=== PATIENT | female | born 1955 | race Caucasian/White ===

== ENCOUNTER 2017-09-11 09:39 | Emergency (ER) | payer BC ==
[2017-09-11 09:52] VITALS: BP 185/70
[2017-09-11] MEDS ORDERED: Meclizine 12.5 MG Tab PO ONE (10:14)
--- NOTE | 2017-09-11 10:58 | CT ---
Head CT Technique: Multiple axial sections through the brain were obtained. Intravenous contrast was not utilized. Comparison: No previous intracranial imaging. Findings: Ventricles along with basal cisterns and sulci over the convexities are within normal limits for the patient's age. No abnormal parenchymal densities are seen. No evidence of intracranial hemorrhage. No midline shift or mass effect is seen. Bone window settings were reviewed which shows no discrete calvarial abnormality. Visualized sinuses are clear. Mild atherosclerotic change is seen within the carotid siphon. Impression: 1. Incidental findings. Nothing acute is appreciated on noncontrast head CT study. Diagnostic code #2
--- NOTE | 2017-09-11 11:12 | EDM.PDOC ---
ED HPI GENERAL MEDICAL PROBLEM - General Chief Complaint: Neurological Problem Stated Complaint: DIZZY AND OFF BALANCE Time Seen by Provider: 09/11/17 09:55 Source of Information: Reports: Patient, RN Notes Reviewed - History of Present Illness INITIAL COMMENTS - FREE TEXT/NARRATIVE: 62-year-old female comes in with vertigo type dizziness. She had mild vertigo type dizziness yesterday morning that was worse with motion. that did get better and did fairly well go away during the day. She then had recurrence of more severe dizziness upon awakening this morning. Worse with motion. Is okay if she lies still and does not move her head. She states when she is up standing or walking she feels very "unsteady" on her feet. No focal weakness. No headache or ear discomfort. She's not been ill with recent sinus problems. She's never had anything of this nature before. She is insulin-dependent diabetic. - Related Data Allergies Allergy/AdvReac Type Severity Reaction Status Date / Time fish oil Allergy Stomach Verified 12/22/15 06:16 Upset Home Meds: Home Meds Hydrocodone/Acetaminophen [[place]ion 10-325 Tablet] 1 each PO Q4H PRN #20 tablet [Rx] Ibuprofen [Motrin] 400 mg PO Q6H PRN #28 tablet 12/22/15 [Rx] Insulin Glarg,Human.Rec.Analog [Lantus] 38 units SQ DAILY 12/22/15 [History] Metoprolol Tartrate [Lopressor] 12/22/15 [History] Pravastatin [Pravachol] 12/22/15 [History] SitaGLIPtin [Januvia] 12/22/15 [History] Tamsulosin [Flomax] 0.4 mg PO ONETIME #10 cap.er 12/22/15 [Rx] glipiZIDE [Glipizide ER] 12/22/15 [History] metFORMIN [Glucophage XR] 2 tab PO BID 12/22/15 [History] Insulin Aspart [NovoLOG] 7 unit SQ BID 09/11/17 [History] Past Medical History Cardiovascular History: Reports: High Cholesterol, Hypertension Genitourinary History: Reports: Renal Calculus Endocrine/Metabolic History: Reports: Diabetes, Type I - Past Surgical History HEENT Surgical History: Reports: Cataract Surgery Social & Family History - Family History Family Medical History: Noncontributory - Tobacco Use Smoking Status *Q: Never Smoker - Recreational Drug Use Recreational Drug Use: No ED ROS GENERAL - Review of Systems Review Of Systems: See Below Constitutional: Denies: Fever, Chills, Diaphoresis HEENT: Reports: Vertigo. Denies: Ear Discharge, Ear Pain, Rhinitis, Sinus Problem, Throat Pain, Vision Change Respiratory: Denies: Shortness of Breath Cardiovascular: Denies: Chest Pain GI/Abdominal: Reports: Nausea. Denies: Abdominal Pain, Vomiting Musculoskeletal: Reports: No Symptoms Skin: Reports: No Symptoms Neurological: Reports: Dizziness. Denies: Headache, Numbness, Tingling, Trouble Speaking, Weakness ED EXAM, DIZZINESS - Physical Exam Exam: See Below Exam Limited By: No Limitations General Appearance: Alert, No Apparent Distress Eye Exam: Bilateral Eye: Nystagmus (slight horizontal nystagmus with motion), PERRL Ears: Normal External Exam, Normal Canal, Normal TMs Nose: Normal Inspection Throat/Mouth: Normal Inspection, Normal Oropharynx Head Exam: Atraumatic. No: Facial Swelling Vertigo: reproducible Respiratory/Chest: No Respiratory Distress, Lungs Clear, Normal Breath Sounds Cardiovascular: Regular Rate, Rhythm GI/Abdominal: Soft, Non-Tender. No: Guarding Neurological: Alert, No Motor/Sensory Deficits, Oriented x 3 Extremities: Normal Inspection. No: Pedal Edema, Leg Pain Psychiatric: Normal Mood Skin Exam: Warm, Dry, Normal Color Course - Vital Signs Last Recorded V/S: Last Vital Signs Temp 97.8 F 09/11/17 09:49 Pulse 78 09/11/17 09:49 Resp 16 09/11/17 09:49 BP 185/70 H 09/11/17 09:49 Pulse Ox 95 09/11/17 09:49 - Orders/Labs/Meds Labs: Laboratory Tests 09/11/17 09/11/17 Range/Units 10:25 10:25 WBC 5.94 (3.98-10.04) K/mm3 RBC 3.72 L (3.98-5.22) M/mm3 Hgb 11.2 (11.2-15.7) gm/L Hct 33.8 L (34.1-44.9) % MCV 90.9 (79.4-94.8) fl MCH 30.1 (25.6-32.2) pg MCHC 33.1 (32.2-35.5) g/dl RDW Std Deviation 41.7 (36.4-46.3) fL Plt Count 237 (182-369) K/mm3 MPV 10.1 (9.4-12.3) fl Neut % (Auto) 59.0 (34.0-71.1) % Lymph % (Auto) 29.3 (19.3-51.7) % Hickman % (Auto) 9.1 (4.7-12.5) % Eos % (Auto) 2.2 (0.7-5.8) Baso % (Auto) 0.2 (0.1-1.2) % Neut # (Auto) 3.51 (1.56-6.13) K/mm3 Lymph # (Auto) 1.74 (1.18-3.74) K/mm3 Hickman # (Auto) 0.54 H (0.24-0.36) K/mm3 Eos # (Auto) 0.13 (0.04-0.36) K/mm3 Baso # (Auto) 0.01 (0.01-0.08) K/mm3 Sodium 141 (136-145) mEq/L Potassium 3.8 (3.5-5.1) mEq/L Chloride 104 (98-107) mEq/L Carbon Dioxide 24 (21-32) mEq/L Anion Gap 16.8 H (5-15) BUN 23 H (7-18) mg/dL Creatinine 1.5 H (0.55-1.02) mg/dL Est Cr Clr Drug Dosing 31.15 mL/min Estimated GFR (MDRD) 35 (>60) mL/min BUN/Creatinine Ratio 15.3 (14-18) Glucose 275 H (80-115) mg/dL Calcium 9.2 (8.5-10.1) mg/dL Total Bilirubin 0.7 (0.2-1.0) mg/dL AST 14 L (15-37) U/L ALT 26 (14-59) U/L Alkaline Phosphatase 66 (46-116) U/L Total Protein 7.2 (6.4-8.2) g/dl Albumin 3.3 L (3.4-5.0) g/dl Globulin 3.9 gm/dL Albumin/Globulin Ratio 0.9 L (1-2) Meds: Medications Discontinued Medications Generic Name Dose Route Start Last Admin Trade Name Colt PRN Reason Stop Dose Admin Meclizine HCl 12.5 mg 09/11/17 10:14 09/11/17 10:27 Antivert PO 09/11/17 10:15 12.5 mg ONETIME ONE Administration - Re-Assessments/Exams Free Text/Narrative Re-Assessment/Exam: 09/11/17 11:34 Feeling better, she was able to get up to the bathroom a short time ago. Head CT normal. She still is feeling some vertigo with walking but much improved from arrival. She is diabetic so I'm not going to start her on any type of steroid medication. SHe does feel up to going home at this time. Discharge instructions as documented Departure - Departure Time of Disposition: 11:35 Disposition: Home, Self-Care 01 Condition: Fair Clinical Impression: Labyrinthitis Qualifiers: Laterality: unspecified laterality Qualified Code(s): H83.09 - Labyrinthitis, unspecified ear - Discharge Information Referrals: Aditya Gonzalez MD [Primary Care Provider] - Forms: ED Department Discharge Additional Instructions: Rest, move slowly and carefully as discussed, Antivert 12.5 mg (available OTC) once this afternoon, and then again at bedtime today. than take that twice daily for the next 2 or 3 days until symptoms have completely resolved. Follow- up clinic if not getting back to normal by early next week as expected, return to ED if symptoms worsening in any way.
== END 2017-09-11 11:47 | disposition home or self-care (01) ==
LOC: JD.ED 09:39
DX: H83.09 Labyrinthitis, unspecified ear (principal); I10 Essential (primary) hypertension; E78.00 Pure hypercholesterolemia, unspecified; E10.9 Type 1 diabetes mellitus without complications; Z98.49 Cataract extraction status, unspecified eye; Z87.442 Personal history of urinary calculi; Z79.4 Long term (current) use of insulin; Z91.013 Allergy to seafood
CPT/HCPCS: 36415; 70450; 80053; 85025; 99284; A9270

== ENCOUNTER 2018-03-21 14:42 | Emergency (ER) | payer BC ==
[2018-03-21 14:51] VITALS: BP 193/73
--- NOTE | 2018-03-21 14:55 | EDM.PDOC ---
ED HPI GENERAL MEDICAL PROBLEM - General Chief Complaint: Abdominal Pain Stated Complaint: PAIN RIGHT SIDE Time Seen by Provider: 03/21/18 14:55 Source of Information: Reports: Patient History Limitations: Reports: No Limitations - History of Present Illness INITIAL COMMENTS - FREE TEXT/NARRATIVE: 63-year-old female presents to the ED with diffuse right rupesh-abdominal pain rating through to her back. She states it started yesterday afternoon but then seemed to ease up and she was able to sleep fairly well. About 3 hours ago the pain increased tremendously in intensity and she made decision that she would need to come to the hospital. She has not noticed any blood in her urine or darker color in her urine. She has had kidney stone on the right side and at least 3 previous occasions. All of them passed on their own without lithotripsy. Renal colic was about 2 years ago. She's had no previous abdominal surgeries. She is an insulin-dependent diabetic and her sugars are running a bit higher today. Denies any genitourinary complaints such as dysuria urgency or frequency. She is nauseated intermittently when the pain is intense. At present her pain is pretty well gone. When the pain is present it has a very strong colicky component. Onset: Gradual Onset Date: 03/20/18 (First noted yesterday afternoon.) Onset Time: 14:00 Duration: Hour(s): Location: Reports: Abdomen (Right midabdomen rating to to her back), Back ( Right flank) Quality: Reports: Ache Severity: Mild (Currently she is pain-free but an hour ago the pain was 9 out of 10.) Improves with: Reports: None Worsens with: Reports: None Context: Denies: Activity, Exercise, Lifting, Sick Contact, Trauma, Other Associated Symptoms: Reports: Nausea/Vomiting. Denies: No Other Symptoms, Confusion Treatments BREWMASTER: Reports: Other (see below) (Mild nausea with no vomiting none.) Right Lower Abdominal Pain Score (Numeric/FACES): 3 - Related Data Allergies Allergy/AdvReac Type Severity Reaction Status Date / Time fish oil Allergy Stomach Verified 03/21/18 14:51 Upset Home Meds: Home Meds Hydrocodone/Acetaminophen [[place] 10-325 Tablet] 1 each PO Q4H PRN #20 tablet [Rx] Ibuprofen [Motrin] 400 mg PO Q6H PRN #28 tablet 12/22/15 [Rx] Insulin Glarg,Human.Rec.Analog [Lantus] 38 units SQ DAILY 12/22/15 [History] Metoprolol Tartrate [Lopressor] 12/22/15 [History] Pravastatin [Pravachol] 12/22/15 [History] SitaGLIPtin [Januvia] 12/22/15 [History] Tamsulosin [Flomax] 0.4 mg PO ONETIME #10 cap.er 12/22/15 [Rx] glipiZIDE [Glipizide ER] 12/22/15 [History] metFORMIN [Glucophage XR] 2 tab PO BID 12/22/15 [History] Insulin Aspart [NovoLOG] 7 unit SQ BID 09/11/17 [History] Levofloxacin [Levaquin] 500 mg PO DAILY #7 tab 03/21/18 [Rx] Ondansetron [Zofran] 4 mg BUCCAL Q6H PRN #8 tab 03/21/18 [Rx] Tamsulosin [Flomax] 0.4 mg PO DAILY #5 cap.er 03/21/18 [Rx] oxyCODONE HCl/Acetaminophen [Percocet 5-325 mg Tablet] 1 - 2 each PO Q4H PRN # 20 tablet 03/21/18 [Rx] Past Medical History Cardiovascular History: Reports: High Cholesterol, Hypertension Genitourinary History: Reports: Renal Calculus Endocrine/Metabolic History: Reports: Diabetes, Type I - Past Surgical History HEENT Surgical History: Reports: Cataract Surgery Social & Family History - Family History Family Medical History: Noncontributory - Tobacco Use Smoking Status *Q: Never Smoker - Recreational Drug Use Recreational Drug Use: No - Living Situation & Occupation Living situation: Reports: Occupation: Employed [employer] GENERAL - Review of Systems Review Of Systems: See Below Constitutional: Reports: Decreased Appetite. Denies: Fever, Chills, Malaise, Weakness, Fatigue, Weight Loss HEENT: Reports: No Symptoms Respiratory: Reports: No Symptoms Cardiovascular: Reports: No Symptoms Endocrine: Reports: No Symptoms GI/Abdominal: Reports: Abdominal Pain (See history of present illness) : Reports: Flank Pain (Right flank discomfort. Starts in the abdomen however) Musculoskeletal: Reports: Back Pain, Joint Pain Skin: Reports: No Symptoms Neurological: Reports: No Symptoms Psychiatric: Reports: No Symptoms Hematologic/Lymphatic: Reports: No Symptoms Immunologic: Reports: No Symptoms ED EXAM, GI/ABD - Physical Exam Exam: See Below Exam Limited By: No Limitations General Appearance: Alert, WD/WN, No Apparent Distress Eyes: Bilateral: Normal Appearance (No jaundice.) Throat/Mouth: Normal Inspection, Normal Lips, Normal Oropharynx Head: Atraumatic, Normocephalic Neck: Normal Inspection, Supple, Non-Tender, Full Range of Motion. No: Lymphadenopathy (L), Lymphadenopathy (R) Respiratory/Chest: No Respiratory Distress, Lungs Clear, Normal Breath Sounds, No Accessory Muscle Use Cardiovascular: Normal Peripheral Pulses, Regular Rate, Rhythm, No Gallop, No Murmur GI/Abdominal Exam: Soft, Non-Tender, No Organomegaly, No Abnormal Bruit, No Mass , Abnormal Bowel Sounds (Bowel sounds are fairly hyperactive in all 4 quadrants. ). No: Guarding, Rigid, Rebound Back Exam: CVA Tenderness (R). No: CVA Tenderness (L) Extremities: Normal Inspection (Nicki minimal.), Normal Range of Motion, Non- Tender, No Pedal Edema Neurological: Alert, Oriented, CN II-XII Intact, Normal Cognition Psychiatric: Normal Affect, Normal Mood Skin Exam: Warm, Dry, Intact, No Rash Course - Vital Signs Last Recorded V/S: Last Vital Signs Temp 36.5 C 03/21/18 14:47 Pulse 77 03/21/18 14:47 Resp 16 03/21/18 14:47 BP 193/73 H 03/21/18 14:47 Pulse Ox 98 03/21/18 14:47 - Orders/Labs/Meds Orders: Active Orders 24 hr Category Date Time Status URINALYSIS W/MICROSCOPIC [UA W/MICROSCOPIC] [URIN] Stat Lab 03/21/18 16:09 Ordered Labs: Laboratory Tests 03/21/18 Range/Units 16:09 Urine Color Yellow (Yellow) Urine Appearance Clear (Clear) Urine pH 6.5 (5.0-8.0) Ur Specific Delight 1.020 (1.005-1.030) Urine Protein 1+ H (Negative) Urine Glucose (UA) 2+ H (Negative) Urine Ketones Negative (Negative) Urine Occult Blood 3+ H (Negative) Urine Nitrite Negative (Negative) Urine Bilirubin Negative (Negative) Urine Urobilinogen 0.2 (0.2-1.0) Ur Leukocyte Esterase 1+ H (Negative) Urine RBC 40-50 H (0-5) /hpf Urine WBC 30-40 H (0-5) /hpf Ur Epithelial Cells 10-20 H (0-5) /hpf Urine Bacteria Few (FEW) /hpf Urine Mucus Not seen (FEW) /hpf - Radiology Interpretation Free Text/Narrative:: 63-year-old female presents to the ED with intermittent right flank right rupesh- abdominal pain. She feels that to renal colic which she's experienced at least 3 occasions in the past. Last bout of renal colic was about 2 years ago on the right side. She's always passed his stones on her own volition without need for lithotripsy. No associated fever chills or genitourinary complaints. She has intermittent nausea with the intensity of the pain. At present she is pain- free. Plan CT of the abdomen per renal protocol urinalysis to be done. - Re-Assessments/Exams Free Text/Narrative Re-Assessment/Exam: 03/21/18 16:15 patient states is just a twinge of pain at present. The CT confirms a 4 mm x 3 mm almost triangular stone in the proximal right ureter with high-grade obstruction as there is a large amount of perinephric stranding. Will be discharged to home on Zofran 4 mg sublingual every 4 hours. As necessary for nausea relief. Percocet 5/3/25 milligram tabs 2 tablets every 4 hours as needed for pain relief. Tamsulosin 0.6 mg once at bedtime for the next 5 days. Levaquin 500 mg once daily for the next 7 days to prevent secondary infection as the obstruction is very high-grade. Departure - Departure Time of Disposition: 16:17 Disposition: Home, Self-Care 01 Condition: Fair Clinical Impression: Kidney stone on right side, Ureteric colic - Discharge Information Prescriptions: Levofloxacin [Levaquin] 500 mg PO DAILY #7 tab Ondansetron [Zofran] 4 mg BUCCAL Q6H PRN #8 tab PRN Reason: nausea or vomiting oxyCODONE HCl/Acetaminophen [Percocet 5-325 mg Tablet] 1 - 2 each PO Q4H PRN # 20 tablet PRN Reason: pain relief. Tamsulosin [Flomax] 0.4 mg PO DAILY #5 cap.er Instructions: Kidney Stones, [id number] Referrals: Aditya Gonzalez MD [Primary Care Provider] - Forms: ED Department Discharge Additional Instructions: Evaluation the emergency room today in regards to valve and of right flank pain associated with right upper abdominal pain characteristic of renal colic which you have experienced several times in the past. CT scan of the abdomen confirms a slightly triangular shaped stone in the proximal or upper right ureter. Measures 4 mm in its longest side in about 3 mm on what the other side. The stone will have difficulty passing due to its shape. Treatment is plenty of fluids. Zofran 4 mg under the tongue every 4 hours as needed for nausea relief. Percocet 5/3/25 milligram tabs one or 2 usually 2 at the onset of severe pain. Below some 0.4 mg every night at bedtime for the next 5 days or until stone has passed. Strain the urine until stone evidence that the stone has passed. Also suggest use of Levaquin 500 mg once a day for the next week to prevent secondary urinary tract infection occurring from high-grade obstruction. If the stone is not passed on its own of the next 10-14 days then consultation with a urologist is advised. Dr. Gonzalez could facilitate this. Of course return to the ED if pain is on not controlled or you cannot stop nausea and vomiting. - My Orders Last 24 Hours: My Active Orders 03/21/18 16:09 URINALYSIS W/MICROSCOPIC [UA W/MICROSCOPIC] [URIN] Stat - Assessment/Plan Last 24 Hours: My Active Orders 03/21/18 16:09 URINALYSIS W/MICROSCOPIC [UA W/MICROSCOPIC] [URIN] Stat
--- NOTE | 2018-03-21 15:47 | CT ---
CT abdomen and pelvis Technique: Multiple axial sections were obtained from above the dome of the diaphragm inferiorly through the pubic symphysis. Intravenous and oral contrast was not utilized. Study has been performed as a ureteral stone protocol. Findings: Inflammatory change is noted around the right kidney. Right hydronephrosis is seen. Findings are caused by a small obstructing stone within the proximal right ureter measuring approximately 4 mm. No additional calcifications are seen along the course of the ureters. No abnormal calcifications are appreciated within the kidneys. Visualized lung bases shows incidental atelectasis. Noncontrast appearance of the liver appears within normal limits. Spleen also appears within normal limits. Adrenal glands show no nodule. Pancreas appears within normal limits. Gallbladder contains no calcified gallstones. Aorta shows atherosclerotic change which continues into the iliac vessels. No aneurysm is seen. No retroperitoneal adenopathy or mesenteric abnormalities are seen. No pelvic mass or adenopathy is seen. No bladder calculi are seen. Appendix is seen which appears normal in size. Bone window settings were reviewed which appears within normal limits for the patient's age. Impression: 1. Hydronephrosis of the right kidney with surrounding inflammatory change. These findings are caused by a 4 mm obstructing stone within the proximal right ureter. 2. No additional ureteral stones are seen. No renal calculi are seen. 3. No additional abnormality is appreciated. Diagnostic code #3
== END 2018-03-21 16:35 | disposition home or self-care (01) ==
LOC: JD.ED 14:42
DX: N13.2 Hydronephrosis with renal and ureteral calculous obstruction (principal); E78.00 Pure hypercholesterolemia, unspecified; I10 Essential (primary) hypertension; E10.9 Type 1 diabetes mellitus without complications; Z79.899 Other long term (current) drug therapy; Z87.442 Personal history of urinary calculi
CPT/HCPCS: 74176; 74176-26; 81001; 99283; 99284-25

== ENCOUNTER 2021-10-25 08:22 | Emergency (ER) | payer BC ==
[2021-10-25 09:11] VITALS: BP 182/72; PULSE 76
--- NOTE | 2021-10-25 10:07 | CR ---
Lumbar spine: AP, lateral and coned-down lateral views centered to the lumbosacral junction were obtained. Comparison: Study is compared to reconstructed lateral exam performed during CT study of 03/21/18 of the abdomen and pelvis. Mild joint space narrowing is seen within the visualized thoracic spine. Mild disc space narrowing is also noted at L1-2 and L2-3. Scattered anterior endplate osteophytes are seen at the areas of disc space narrowing. Vertebral body heights are maintained. Pedicles are intact. Visualized transverse and spinous processes are intact. Vascular calcification is noted within the aorta. Impression: 1. Mild degenerative change as described above. Diagnostic code #2
--- NOTE | 2021-10-25 10:07 | CR ---
Pelvis and right hip: AP view of the pelvis was obtained as well as AP and frog-leg lateral views of the right hip. Comparison: Study is compared to previous abdomen and pelvis CT exam of 03/21/18. Vascular calcification is seen within the pelvis as well as within the upper extremities on both sides. Sacroiliac joints appear within normal limits for the patient's age. Joint spaces within the left hip are slightly narrowed. Joint space within the right hip is preserved. No fracture or subluxation is seen. Impression: 1. Vascular calcification. Mild joint space narrowing superiorly within the left hip. 2. AP pelvis and two-view right hip exam is otherwise unremarkable. Diagnostic code #2
--- NOTE | 2021-10-25 11:01 | EDM.PDOC ---
ED HPI GENERAL MEDICAL PROBLEM - General Chief Complaint: Lower Extremity Injury/Pain Stated Complaint: R HIP PAIN Time Seen by Provider: 10/25/21 09:19 Source of Information: Reports: Patient History Limitations: Reports: No Limitations - History of Present Illness INITIAL COMMENTS - FREE TEXT/NARRATIVE: The patient presents with right low back pain and right hip pain. She woke up with the pain this morning. She did not fall, lift or twist. 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 She has no fever, chills, cough, chest pain, abdominal pain, nausea, vomiting, or dysuria. She has no numbness or weakness. She has never had pain like this before. Onset: Sudden Duration: Hour(s): Location: Reports: Back, Lower Extremity, Right (hip) Quality: Reports: Sharp Severity: Moderate Improves with: Reports: Immobilization Worsens with: Reports: Movement Context: Denies: Trauma Associated Symptoms: Reports: No Other Symptoms Hip Pain Score (Numeric/FACES): 4 - Related Data Allergies Allergy/AdvReac Type Severity Reaction Status Date / Time fish oil Allergy Stomach Verified 10/25/21 09:11 Upset Home Meds: Home Meds Metoprolol Tartrate [Lopressor] 25 mg PO DAILY 12/22/15 [History] Pravastatin [Pravachol] 10 mg PO DAILY 12/22/15 [History] oxyCODONE HCl/Acetaminophen [Percocet 5-325 mg Tablet] 1 - 2 each PO Q4H PRN #20 tablet 03/21/18 [Rx] Cyclobenzaprine [Flexeril] 10 mg PO TID PRN #20 tab 10/25/21 [Rx] Insulin Aspart [NovoLOG] units SQ TIDMEALS 10/25/21 [History] Semaglutide [Ozempic] 1 mg SQ WEEKLY 10/25/21 [History] Past Medical History HEENT History: Reports: Impaired Vision Cardiovascular History: Reports: High Cholesterol, Hypertension Genitourinary History: Reports: Renal Calculus Endocrine/Metabolic History: Reports: Diabetes, Type I, Obesity/BMI 30+ - Past Surgical History HEENT Surgical History: Reports: Cataract Surgery Social & Family History - Family History Family Medical History: No Pertinent Family History - Tobacco Use Tobacco Use Status *Q: Never Tobacco User - Caffeine Use Caffeine Use: Reports: Coffee - Recreational Drug Use Recreational Drug Use: No - Living Situation & Occupation Living situation: Reports: Occupation: Employed Review of Systems - Review of Systems Review Of Systems: See Below Constitutional: Reports: No Symptoms Eyes: Reports: No Symptoms Ears: Reports: No Symptoms Nose: Reports: No Symptoms Mouth/Throat: Reports: No Symptoms Respiratory: Reports: No Symptoms Cardiovascular: Reports: No Symptoms GI/Abdominal: Reports: No Symptoms Genitourinary: Reports: No Symptoms Musculoskeletal: Reports: Back Pain, Other (right hip pain) ED EXAM, GENERAL - Physical Exam Exam: See Below Exam Limited By: No Limitations General Appearance: Alert, No Apparent Distress Ears: Normal External Exam Nose: Normal Inspection Head: Atraumatic, Normocephalic Neck: Normal Inspection Respiratory/Chest: No Respiratory Distress, Lungs Clear, Normal Breath Sounds Cardiovascular: Regular Rate, Rhythm, No Edema, No Murmur GI/Abdominal: Soft, Non-Tender, No Organomegaly, No Mass Back Exam: Other (Mild pain upon palpation to the right low back) Extremities: Other (mild pain upon palpation to the right hip) Neurological: Alert, Oriented, No Motor/Sensory Deficits Course - Vital Signs Last Recorded V/S: Last Vital Signs Temp 97.2 F 10/25/21 09:08 Pulse 76 10/25/21 09:08 Resp 14 10/25/21 09:08 BP 182/72 H 10/25/21 09:08 Pulse Ox 100 10/25/21 09:08 - Re-Assessments/Exams Free Text/Narrative Re-Assessment/Exam: 10/25/21 10:58 I ordered an x-ray of her lumbar spine and right hip and pelvis. The x-rays shows mild degenerative change of the lumbar spine. The x-ray of the hip and pelvis shows vascular calcification. Mild joint space narrowing superiorly within the left hip. AP pelvis and two-view right hip exam is otherwise unremarkable. I will get her on a flexeril and some antiinflammatory such as motrin or aleve. Departure - Departure Time of Disposition: 11:05 Disposition: Home, Self-Care 01 Condition: Good Clinical Impression: Low back pain Qualifiers: Chronicity: acute Back pain laterality: right Sciatica presence: with sciatica Sciatica laterality: sciatica of right side Qualified Code(s): M54.41 - Lumbago with sciatica, right side - Discharge Information *PRESCRIPTION DRUG MONITORING PROGRAM REVIEWED*: Not Applicable *COPY OF PRESCRIPTION DRUG MONITORING REPORT IN PATIENT [place]: Not Applicable Prescriptions: Cyclobenzaprine [Flexeril] 10 mg PO TID PRN #20 tab PRN Reason: Pain Referrals: Aditya Gonzalez MD [Primary Care Provider] - 1 Week Additional Instructions: Take an antiinflammatory such as motrin or aleve. Take flexeril every 8 hours as needed for pain. Try to ice your back for 15 minutes 3 times per day for 2 days. Please return if you are worse. Sepsis Event Note (ED) - Evaluation Sepsis Screening Result: No Definite Risk - Focused Exam Vital Signs: Vital Signs Temp Pulse Resp BP Pulse Ox 10/25/21 09:08 97.2 F 76 14 182/72 H 100
== END 2021-10-25 11:00 | disposition home or self-care (01) ==
LOC: JD.ED 08:22
DX: M54.41 Lumbago with sciatica, right side (principal); E78.00 Pure hypercholesterolemia, unspecified; I10 Essential (primary) hypertension; E10.9 Type 1 diabetes mellitus without complications; E66.9 Obesity, unspecified; Z68.35 Body mass index [BMI] 35.0-35.9, adult; Z91.018 Allergy to other foods; Z79.899 Other long term (current) drug therapy
CPT/HCPCS: 72100; 72100-26; 73502-26-RT; 73502-RT; 99283-25

== ENCOUNTER 2024-08-22 05:46 | Emergency (ER) | payer BC, MEDICARE ==
[2024-08-22] MEDS: Sodium Chloride 0.9% 1,000 ML IV SCH (06:28)
[2024-08-22] MEDS: Meclizine 25 MG Tab PO ONE (06:28)
[2024-08-22] MEDS: Ondansetron 4 MG/2 ML SDV IVPUSH ONE (06:28)
[2024-08-22 07:02] LABS: BASOPHILS ABSOLUTE AUTO 0.1 K/mm3 (0.0-0.2); BASOPHILS PERCENT AUTO 0.6 % (0.0-1.0); EOSINOPHILS ABSOLUTE AUTO 0.2 K/mm3 (0.0-0.4); EOSINOPHILS PERCENT AUTO 2.2 % (0.0-6.0); HEMATOCRIT 31.8 % (37.0-47.0); HEMOGLOBIN 10.1 gm/dl (12.0-16.0); IMMATURE GRAN ABSOLUTE AUTO 0.03 K/mm3 (0.00-0.05); IMMATURE GRAN PERCENT AUTO 0.3 % (0.0-0.4); LYMPHOCYTES ABSOLUTE AUTO 1.6 K/mm3 (1.0-4.8); LYMPHOCYTES PERCENT AUTO 17.6 % (24.0-44.0); MEAN CORPUSCULAR HEMOGLOBIN 30.5 pg (28.0-32.0); MEAN CORPUSCULAR HGB CONC 31.8 g/dl (32.0-36.0); MEAN CORPUSCULAR VOLUME 96.1 fl (83.0-99.0); MEAN PLATELET VOLUME 9.8 fl (9.4-12.3); MONOCYTES ABSOLUTE AUTO 0.7 K/mm3 (0.0-0.8); MONOCYTES PERCENT AUTO 7.4 % (0.0-8.0); NEUTROPHILS ABSOLUTE AUTO 6.4 K/mm3 (1.8-7.7); NEUTROPHILS PERCENT AUTO 71.9 % (41.0-71.0); PLATELET COUNT,PLT 219 K/mm3 (150-400); RED BLOOD CELL COUNT 3.31 M/mm3 (4.10-5.30); WHITE BLOOD CELL COUNT,WBC 8.83 K/mm3 (3.9-11.3)
[2024-08-22 07:40] VITALS: BP 140/69; PULSE 73
[2024-08-22 07:40] LABS: A/G RATIO 0.9 (1-2); ALBUMIN 3.2 g/dl (3.4-5.0); ANION GAP 12.9 (5-15); BILIRUBIN TOTAL 0.6 mg/dL (0.2-1.0); CALCIUM 9.3 mg/dL (8.5-10.1); CREATININE 1.9 mg/dL (0.55-1.02); EST CRCL DRUG DOSING (CG) 22.41 mL/min; MAGNESIUM 2.3 mg/dL (1.8-2.4); POTASSIUM,K 3.9 mEq/L (3.5-5.1); PROTEIN TOTAL,TP 6.7 g/dl (6.4-8.2)
== END 2024-08-22 07:20 | disposition home or self-care (01) ==
LOC: JD.ED 05:46
DX: E78.00 Pure hypercholesterolemia, unspecified (principal); I10 Essential (primary) hypertension; E10.9 Type 1 diabetes mellitus without complications; E66.9 Obesity, unspecified; Z79.899 Other long term (current) drug therapy; Z79.4 Long term (current) use of insulin; Z91.013 Allergy to seafood
CPT/HCPCS: 36415; 80053; 83735; 85025; 96361; 96374; 99284; A9270; J2405; J7030